=== PATIENT | male | born 1950 | race Caucasian/White ===

== ENCOUNTER 2019-12-31 17:29 | Emergency (ER) | payer OTHER, MEDICAID ==
[~2019-12-31] VITALS: Ht 177.8 cm; Wt 79.5 kg
[2019-12-31] MEDS ORDERED: NICOTINE 21 MG/24 HOUR PATCH TD ONE (19:15)
[2019-12-31 19:17] LABS: BASOPHILS % (AUTO) 0.7 % (0.0-2.0); HEMATOCRIT 43.8 % (41-53); HEMOGLOBIN 14.6 g/dL (13.5-17.5); LYMPHOCYTES # (AUTO) 1.4 K/uL (1.0-4.8); LYMPHOCYTES % (AUTO) 28.6 % (22.0-44.0); MEAN CORPUSCULAR HEMOGLOBIN 33.6 pg (26.0-34.0); MEAN CORPUSCULAR HGB CONC 33.2 G/dL (31.0-37.0); MEAN CORPUSCULAR VOLUME 101 fL (80-100); MONOCYTES # (AUTO) 0.4 K/uL (0.1-1.0); MONOCYTES % (AUTO) 8.7 % (2.0-9.0); PLATELET COUNT (AUTO) 215 K/uL (150-450); RED BLOOD CELL COUNT(AUTO) 4.33 MIL/uL (4.50-5.90); RED CELL DISTRIBUTION WIDTH 13.8 % (11.5-14.5)
[2019-12-31 19:47] LABS: ANION GAP 13 mmol/L (8-16); CALCIUM, TOTAL 9.7 mg/dL (8.8-10.5); CARBON DIOXIDE 26 mmol/L (22-29); CHLORIDE 104 mmol/L (98-107); CREATININE 0.74 mg/dL (0.60-1.30); GLOMERULAR FILTR. RATE CALC > 60 mL/min (>60); GLUCOSE,RANDOM 98 mg/dL (70-110); POTASSIUM 3.6 mmol/L (3.5-5.1); SODIUM SERUM 143 mmol/L (136-145); UREA NITROGEN, BLOOD 14 mg/dL (7-18)
[2019-12-31 19:52] LABS: ALANINE AMINOTRANSFERASE 21 U/L (12-78); ALBUMIN 4.4 g/dL (3.4-5.0); ALKALINE PHOSPHATASE 66 U/L (46-116); ASPARTATE AMINOTRANSFERASE 25 U/L (15-37); BILIRUBIN,TOTAL 0.4 mg/dL (0.1-1.0); TOTAL PROTEIN, SERUM 8.3 g/dL (6.4-8.2)
[2019-12-31 19:56] VITALS: BP 166/102
== END 2019-12-31 20:46 | disposition home or self-care (01) ==
LOC: EMS 17:29
DX: R45.851 Suicidal ideations (principal); F10.129 Alcohol abuse with intoxication, unspecified; R03.0 Elevated blood-pressure reading, without diagnosis of hypertension; Y90.6 Blood alcohol level of 120-199 mg/100 ml
CPT/HCPCS: 36415; 80053; 85025; 99285; G0480

== ENCOUNTER 2021-03-13 00:28 | Emergency (ER) | payer OTHER, MEDICAID ==
[~2021-03-13] VITALS: Ht 180.3 cm; Wt 72.7 kg
[2021-03-13 03:53] VITALS: BP 134/71
== END 2021-03-13 03:50 | disposition home or self-care (01) ==
LOC: EMS 00:30
DX: F10.20 Alcohol dependence, uncomplicated (principal)
CPT/HCPCS: 99283; Z7502

== ENCOUNTER 2023-03-30 16:49 | Emergency (ER) | payer OTHER, MEDICAID ==
[~2023-03-30] VITALS: Ht 180.3 cm; Wt 86.4 kg
[2023-03-30 18:03] VITALS: TEMP 98.8
[2023-03-30] MEDS ORDERED: ACETAMINOPHEN 500 MG TABLET PO ONE (18:30)
[2023-03-30] MEDS ORDERED: TraMADol HCL 50 MG TABLET PO ONE (23:15)
[2023-03-30] MEDS ORDERED: LIDO700A15 TP (23:18)
[2023-03-31 00:43] VITALS: BP 158/97; PULSE 64; RESP 12
== END 2023-03-31 01:53 | disposition home or self-care (01) ==
LOC: EMS 16:52
DX: S09.90XA Unspecified injury of head, initial encounter (principal); S39.92XA Unspecified injury of lower back, initial encounter; F03.90 Unspecified dementia, unspecified severity, without behavioral disturbance, psychotic disturbance, mood disturbance, and anxiety; W19.XXXA Unspecified fall, initial encounter; Y93.89 Activity, other specified; Y92.89 Other specified places as the place of occurrence of the external cause; Y99.8 Other external cause status
CPT/HCPCS: 70450; 72131; 99284

== ENCOUNTER 2023-04-04 13:06 | Emergency (ER) | payer OTHER, MEDICAID ==
[~2023-04-04] VITALS: Ht 180.3 cm; Wt 87.0 kg
[~2023-04-04 13:06] MED LIST: LIDO700A15 TP
[2023-04-04 13:14] VITALS: TEMP 98
[2023-04-04] MEDS ORDERED: LIDOCAINE 5% TRANSDERMAL PATCH TD ONE (14:00)
[2023-04-04] MEDS ORDERED: KETOROLAC TROMETHAMINE 30 MG/ML VIAL IM ONE (14:00)
[2023-04-04] MEDS ORDERED: GABA-1181 PO (15:57)
[2023-04-04] MEDS ORDERED: LIDO700A15 TP (15:58)
[2023-04-04] MEDS ORDERED: ACET-3385 PO (15:59)
[2023-04-04 17:45] VITALS: BP 135/82; PULSE 90; RESP 14
== END 2023-04-04 18:47 | disposition home or self-care (01) ==
LOC: EMS 13:11
DX: S32.009A Unspecified fracture of unspecified lumbar vertebra, initial encounter for closed fracture (principal); M54.50 Low back pain, unspecified; F10.20 Alcohol dependence, uncomplicated; F03.90 Unspecified dementia, unspecified severity, without behavioral disturbance, psychotic disturbance, mood disturbance, and anxiety; Y90.9 Presence of alcohol in blood, level not specified; W19.XXXA Unspecified fall, initial encounter; Y93.89 Activity, other specified; Y92.89 Other specified places as the place of occurrence of the external cause; Y99.8 Other external cause status
CPT/HCPCS: 99283; 96372; J1885